=== PATIENT | female | born 1970 | race Caucasian/White ===

== ENCOUNTER 2019-07-07 09:09 | Inpatient (IN) | payer OTHER ==
[~2019-07-07] VITALS: Ht 91.4 cm; Wt 5.0 kg
[2019-07-07] MEDS ORDERED: PROZAC20 MG (10:32)
[2019-07-07] MEDS ORDERED: TOPROL XL25 M1 (10:32)
[2019-07-07] MEDS ORDERED: CLONAZEPAM0.25 MG (10:33)
[2019-07-07] MEDS ORDERED: FLONASE16 GM (10:33)
== END 2019-07-12 13:03 | disposition home or self-care (01) | DRG 581 ==
LOC: O/R 07-11 06:13 → SURG 07-11 06:13 → SURH 07-11 09:07 → SURG 07-11 17:51
PROVIDERS: Plastic Surgery; ADMIT Surgery
PROC: 0HBV0ZZ Excision of Bilateral Breast, Open Approach (ICD-10-PCS; 2019-07-11)
PROC: C71L1ZZ Planar Nuclear Medicine Imaging of Upper Chest Lymphatics using Technetium 99m (Tc-99m) (ICD-10-PCS; 2019-07-11)
PROC: 0HBU0ZZ Excision of Left Breast, Open Approach (ICD-10-PCS; principal; 2019-07-11 10:00)
PROC: 07B60ZZ Excision of Left Axillary Lymphatic, Open Approach (ICD-10-PCS; 2019-07-11 10:00)
DX: D05.12 Intraductal carcinoma in situ of left breast (principal); N62 Hypertrophy of breast
CPT/HCPCS: 19301; 38525; 38792; 19318; 78195; A9541

== ENCOUNTER 2022-01-31 11:30 | Inpatient (IN) | payer OTHER ==
[~2022-01-31] VITALS: Ht 160 cm; Wt 72.6 kg
[~2022-01-31 11:30] MED LIST: CLONAZEPAM0.25 MG PO; FLONASE16 GM; PROZAC20 MG; TOPROL XL25 M1
[2022-01-31] MEDS ORDERED: ANASTROZOLE1 MG PO (14:21)
[2022-01-31] MEDS ORDERED: EFFEXOR XR150 MG PO (14:22)
[2022-02-03] MEDS ORDERED: ALENDRONATE SOD70 MG (08:47)
== END 2022-02-03 13:50 | disposition home or self-care (01) | DRG 743 ==
LOC: O/R 02-02 06:35 → OB/GYN 02-02 07:00 → SURH 02-02 18:32
PROVIDERS: ADMIT Obstetrics & Gynecology Gynecologic Oncology; ATTEND Obstetrics & Gynecology Gynecologic Oncology
PROC: 0UT74ZZ Resection of Bilateral Fallopian Tubes, Percutaneous Endoscopic Approach (ICD-10-PCS; 2022-02-02)
PROC: 0UT24ZZ Resection of Bilateral Ovaries, Percutaneous Endoscopic Approach (ICD-10-PCS; 2022-02-02)
PROC: 0UT94ZZ Resection of Uterus, Percutaneous Endoscopic Approach (ICD-10-PCS; principal; 2022-02-02 09:45)
DX: N80.1 Endometriosis of ovary (principal); N83.291 Other ovarian cyst, right side; N83.292 Other ovarian cyst, left side; Z20.822 Contact with and (suspected) exposure to COVID-19